=== PATIENT | male | born 2000 | race African-American/Black ===

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

== ENCOUNTER 2018-09-12 17:29 | Emergency (ER) | payer MEDICAID, OTHER ==
[~2018-09-12] VITALS: Ht 198.1 cm; Wt 88.5 kg
[2018-09-12 17:57] VITALS: BP 132/87
[2018-09-12 19:19] LABS: Amphetamine Screen, Urine NEGATIVE (NEGATIVE); Barbiturate Scree,Urine NEGATIVE (NEGATIVE); Benzodiazephine Screen, Urine NEGATIVE (NEGATIVE); Cannabinoid Screen, Urine NEGATIVE (NEGATIVE); Cocaine Screen, Urine NEGATIVE (NEGATIVE); Opiate Scree,Urine NEGATIVE (NEGATIVE); Phencyclidine Screen, Urine NEGATIVE (NEGATIVE)
[2018-09-12] MEDS ORDERED: TETANUS-DIPTH-ACEL PERTUSSIS 0.5ML SYRG IM ONE (21:00)
[2018-09-12] MEDS ORDERED: cefTRIAXone SOD 1,000 MG VL IM ONE (21:15)
[2018-09-12] MEDS ORDERED: HYDROcodone-ACET 10/325MG TAB PO ONE (21:15)
[2018-09-12] MEDS ORDERED: LIDOCAINE 1% HCL (LOCAL ANESTH.) INJ 20ML MDV IJ ONE (21:15)
[2018-09-12] MEDS ORDERED: LIDOCAINE 1%HCL (LOCAL ANESTH) 10 ML MDV ONE (21:17)
[2018-09-12] MEDS ORDERED: MORPHINE SULFATE 4 MG/ML SYR/VIAL IM ONE (21:45)
== END 2018-09-12 22:33 | disposition home or self-care (01) ==
LOC: ER 17:38
DX: S91.211A Laceration without foreign body of right great toe with damage to nail, initial encounter (principal); X58.XXXA Exposure to other specified factors, initial encounter; Y93.89 Activity, other specified; Y92.89 Other specified places as the place of occurrence of the external cause; Y99.8 Other external cause status
CPT/HCPCS: 11730; 36415; 73630; 80307; 80320; 90471; 90715; 96372; 99285; J0696; J2001; J2270; 11760